=== PATIENT | male | born 1965 | race Two or more races ===

== ENCOUNTER 2016-02-22 20:54 | Emergency (ER) | payer SELFPAY ==
[~2016-02-22] VITALS: Ht 172.7 cm; Wt 90.7 kg
[2016-02-22 23:45] VITALS: BP 151/99
[2016-02-22] MEDS ORDERED: BACITRACIN-POLYMYXIN B TOPICAL OINT UD TOP ONE (23:45)
[2016-02-22] MEDS ORDERED: LIDOCAINE 1% HCL (LOCAL ANESTH.) INJ 20ML MDV IJ ONE (23:45)
[2016-02-23] MEDS ORDERED: TETANUS-DIPTH-ACEL PERTUSSIS 0.5ML SYRG IM ONE
== END 2016-02-23 00:32 | disposition home or self-care (01) ==
LOC: ER 21:02
DX: S61.411A Laceration without foreign body of right hand, initial encounter (principal); Z23 Encounter for immunization; W45.8XXA Other foreign body or object entering through skin, initial encounter; Y93.89 Activity, other specified; Y99.8 Other external cause status; Y92.89 Other specified places as the place of occurrence of the external cause
CPT/HCPCS: 12002; 90471; 90715; 99283; J2001